=== PATIENT | female | born 1970 | race Caucasian/White ===

== ENCOUNTER 2024-10-04 07:55 | Inpatient (IN) | payer OTHER, SELFPAY ==
[2024-10-04] VITALS (13 sets, daily range): BP systolic 111–158; BP diastolic 71–92; BMI 22.7
[2024-10-04 00:33] LABS: Glucose - Point of Care 155 mg/dl (70-99)
[2024-10-04] MEDS: NSS 500 IV (00:44)
[2024-10-04] MEDS: DECADRON 10 MG IV (01:04)
[2024-10-04] MEDS: BENADRYL 25 MG IV (01:04)
[2024-10-04] MEDS: REGLAN 10 MG IV (01:05)
[2024-10-04 01:33] LABS: % Basophils 0.6 % (0-2); % Eosinophils 0.4 % (0-6); % Immature Granulocytes 0.4 % (0-0.5); % Lymphocytes 5.4 % (20.5-51.1); % Monocytes 10.8 % (1.7-9.3); % Neutrophils 82.4 % (42.2-75.2); Absolute Lymphocytes 0.3 10^3/uL (1.2-3.4); Absolute Monocytes 0.5 10^3/uL (0.1-0.6); Absolute Neutrophils 3.8 10^3/uL (1.4-6.5); Hematocrit 37.8 % (37.0-47.0); Hemoglobin 13.5 g/dL (12.0-16.0); Mean Corp Hgb Conc. 35.7 g/dL (33.0-37.0); Mean Corpuscular Hgb 31.4 pg (27.0-31.0); Mean Corpuscular Volume 87.9 fL (81.0-99.0); Mean Platelet Volume 8.5 fL (7.4-10.4); Nucleated Red Blood Cells % 0 %; Platelet Count 184 10^3/uL (130-400); Red Cell Dist. Width 11.9 % (11.5-14.5); White Blood Cell Count 4.7 10^3/uL (4.8-10.8)
--- NOTE | 2024-10-04 01:40 | ED.GENMED ---
History of Present Illness
General
Chief Complaint: Headache
Time Seen by Provider: 10/04/24 00:32
History of Present Illness
History of Present Illness:
54-year-old female brought in by her for headache. Patient was feeling faint upon arrival. She did have nausea and vomiting over the last few days. She has been trying to hydrate. She drink an extra liter of water over the past few days.
Does have headaches but states that this 1 is different. Denies chest pain or shortness of breath. Reports no abdominal pain.
Phy Exam
Physical Exam
Physical Exam:
Physical Exam
Vital signs and allergy list reviewed and agreed with.
GENERAL: Alert , in moderate apparent distress
EYE: pupils equal, EOMI, anicteric
NECK: Supple, no significant adenopathy. No masses. Trachea midline
ENT: Oropharynx is clear, mmm.
CARDIAC: Regular rate and rhythm . No M/R/G
LUNGS: Clear breath sounds bilaterally, no acute respiratory distress, no wheezes/rales/rhonchi
ABDOMEN: Soft, without focal tenderness, no r/g, no cvat. Normal BSx4q
NEUROLOGICAL: Alert and oriented, no focal neuro deficits
SKIN: Warm and dry, skin intact.
MUSCULOSKELETAL: No edema, well perfused. Moves all 4 extremities
PSYCH: Normal and appropriate interaction. Somnolent
Course
Orders/Labs/Results
Orders:
Orders
10/04/24 00:32
CT Head & Neck Angio W/wo IV Urgent
Comment: wrong order by attending changed to combined
Reason For Exam: sudden worsening severe headache
0.9% Sodium Chloride 500 ml [Nss] 500 ml IV BOLUS
Test Result ONCE
10/04/24 00:41
Ondansetron Injectable [Zofran] 4 mg IV NOW STA
10/04/24 00:55
Dexamethasone Sod Phosphate [Decadron] 10 mg IV NOW STA
Diphenhydramine [Benadryl] 25 mg IV NOW STA
Metoclopramide [Reglan] 10 mg IV NOW STA
10/04/24 01:21
Complete Blood Count/With Diff Urgent
Comprehensive Metabolic Panel Urgent
Erythrocyte Sed Rate Urgent
HCG, Serum Qualitative Screen Urgent
10/04/24 02:05
Add On- LAB Urgent
Tests Added?: hcg
10/04/24 02:43
3% Sodium Chloride 250 ml [Sodium Chloride 3%] 250 ml IV ONCE
10/04/24 03:43
Chest [CR Chest - 2 Views ] Stat
Comment:
Reason For Exam: cough, siadh rule out pulm nodule
10/04/24 03:51
Influenza A+B Rapid Molecular Stat
PARUL Source: Nasal Swab
Specimen Description:
10/04/24 03:52
Admit/Transfer Patient As Directed
Co-Sign Provider:
Level of Care: Observation services
Assign to:: Telemetry
Physician / Group: hospitalist
Diagnosis: hyponatremia
Reason for Telemetry: Other
Other Reason for Telemetry: hyponatremia
Date to Stop Telemetry: 10/06/24
Time to Stop Telemetry: 11:00
Reason for Hospitalization: hyponatremia
COVID-19 Antigen Stat
Source: Nasal Swab
Urinalysis Urgent
Date Specimen was Collected: 10/04/24
Time Specimen was Collected: 03:41
Urine Microscopic Urgent
Date Specimen was Collected: 10/04/24
Time Specimen was Collected: 03:41
Urine Osmolality Random [Osmolality, Random Urine] Urgent
Date Specimen was Collected: 10/04/24
Time Specimen was Collected: 03:41
Urine Sodium Urgent
Date Specimen was Collected: 10/04/24
Time Specimen was Collected: 03:41
PRN Pain Medication Management As Directed
May give lesser potent ordered pain med per pt: Yes
preference::
Protocol:: Medication orders for pain may be administered in a
manner that supports deferring to patient preference
when the pt is:
- Requesting an ordered lesser potent pain medication.
Least to most potent pain medications are defined
as: acetaminophen < NSAID < tramadol < opioids
(morphine, oxycodone, hydromorphone).
- Requesting a lesser dose of the same medication IF
ORDERED.
- Requesting a less intrusive route of administration
if both routes are prescribed by the provider (PO <
IV).
10/04/24 03:53
Code Status As Directed
Resuscitation Status: Full Code
10/04/24 04:00
3% Sodium Chloride 250 ml [Sodium Chloride 3%] 250 ml IV ONCE
Flush (0.9% Sodium Chloride) [Flush (Nss)] See Dose Instructions IV PER PROTOCOL
10/04/24 04:26
Add On- LAB Stat
Tests Added?: serum osmolality
10/04/24 04:48
Acetaminophen [Tylenol] 650 mg PO Q4HPRN PRN
Metoclopramide [Reglan] 10 mg IV Q6HPRN PRN
10/04/24 04:48
NEPHROLOGY CONSULT Routine
Consulting Provider: Rica Beyer
Was physician already notified: Yes
Reason for consult: hyponatremia, Na 119, new onset headache
MRI Brain [MR Brain Without Contrast] Routine
Comment:
Reason For Exam: new onset headache age > 50
Recent pill cam endoscopy?: No
Activity As Directed
Activity Level: With Assistance
Neurological Checks As Directed
Frequency: q4h
Orthostatic Vital Signs As Directed
Orthostatic VS Frequency: Daily
Pneumatic Compression Sleeves As Directed
Type: Knee high
Vital Signs As Directed
Frequency: Per unit guidelines
Pulse Ox/spot Check [RESP] Routine
Quantity: 1
DX Deep Vein Thrombosis Video Routine
10/04/24 05:35
Basic Metabolic Panel IN AM
10/04/24 Breakfast
Regular
At Your Request: Full Participation
Does patient need a safe tray?: No
Fluid Restriction: 1200 mL/day (40 oz)
10/04/24 10:00
BMP [Basic Metabolic Panel] Routine
10/06/24 11:00
DC Protocol for Telemetry ONCE
Abnormal Lab Results
10/04/24 10/04/24 10/04/24
00:31 01:21 03:52
WBC 4.7 L 10^3/uL
(4.8-10.8)
MCH 31.4 H pg
(27.0-31.0)
Absolute Lymphs (auto) 0.3 L 10^3/uL
(1.2-3.4)
Neutrophils % 82.4 H %
(42.2-75.2)
Lymphocytes % 5.4 L %
(20.5-51.1)
Monocytes % 10.8 H %
(1.7-9.3)
Sodium 119 L* mmol/L
(135-145)
Potassium 3.1 L mmol/L
(3.5-5.1)
Chloride 87 L mmol/L
(98-107)
Carbon Dioxide 19 L mmol/L
(22-30)
BUN 6 L mg/dl
(7-17)
Creatinine 0.4 L mg/dL
(0.6-1.0)
Glucose 161 H mg/dl
(70-99)
Total Bilirubin 1.6 H mg/dl
(0.2-1.3)
AST 49 H U/L
(14-36)
ALT 57 H U/L
(0-35)
Urine Ketones 2+ A
(Negative)
Urine Occult Blood 4+ A
(Negative)
Urine RBC 7-10 A /HPF
(0-2)
Urine Bacteria Few A
(Negative)
Urine Osmolality 94 L mOsm/kg
(300-900)
Urine Sodium 20 L mmol/L
(30-90)
POC Glucose 155 H mg/dl
(70-99)
10/04/24 01:21
10/04/24 01:21
Vital Signs
Initial and Last Documented VS:
Initial Vital Signs
Temp Pulse Resp BP Pulse Ox
97.7 F 91 15 158/92 98
10/04/24 00:29 10/04/24 00:29 10/04/24 00:29 10/04/24 00:29 10/04/24 00:29
Last Documented Vital Signs
Temp Pulse Resp BP Pulse Ox
97.7 F 88 17 127/80 95
10/04/24 00:29 10/04/24 06:30 10/04/24 06:30 10/04/24 06:00 10/04/24 06:30
*Critical Care Note
Total Time (30-74mins, 75-104mins- exclusive of procedures): 46 (Critical care statement: A total of 46 minutes of critical care time was provided for this patient. This time is separate from time utilized to perform the aforementioned documented
procedures. Aggregate critical care time includes only time during which I was engaged in work directl)
Update Note
Update Note:
CT head without contrast
CTA head and neck with IV contrast
IMPRESSION:
CT head:
No acute intracranial process.
No intracranial bleed.
No calvarial fracture.
CTA neck:
No dissection or significant stenosis of the cervical carotid or vertebral arteries.
CTA head:
Patent cerebral vasculature. No evidence of aneurysm or vessel occlusion.
Patient is able to converse. She states that she still has a headache. Will order Toradol.
Patient is acutely hyponatremic. I have every reason to believe that this started in the last 48 hours. Given her sodium is 119 this is severe hyponatremia. Patient has no known intracranial pathology. CT and CT angiograms are negative.
There is no evidence to indicate that this is due to self-induced water intoxication. Patient did admit to drinking 1 L of water today after vomiting trying to 'replace 'volume
There is no edema.
Patient will get 3% saline.
Serum sodium will be monitored hourly.
Patient to be admitted to the hospitalist service
ED Attending Note
-
Portions of this chart may have been created with voice recognition software.� Occasional wrong word or��sound alike� substitutions may have occurred due to the inherent limitations of voice recognition software.
Discharge Plan
Departure
Patient Disposition: Admit
Date of Disposition: 10/04/24
Time of Disposition: 02:45
Admit to: ICU
Presentation/result/management discussed w/ accepting MD/DO: Hospitalist
Condition: Fair
Discharge Problem:
Acute hyponatremia, Headache, Influenza A
Interventions
Interventions:
*Risk Screen - Suicide Last Done: 10/04/24 01:13
*General Assessment Last Done: 10/04/24 01:13
*Neglect/Abuse Screening Last Done: 10/04/24 01:13
*ED- Fall Risk Assessment Last Done: 10/04/24 01:13
*ED COVID-19 Vaccine History Last Done: 10/04/24 01:13
ED- Neurological Assessment Last Done: 10/04/24 01:13
[2024-10-04 01:44] LABS: HCG, Serum Qualitative Screen Negative
[2024-10-04 01:49] LABS: Erythrocyte Sed Rate 1 mm/hour (0-20)
[2024-10-04 02:29] LABS: ALT (SGPT) 57 U/L (0-35); AST (SGOT) 49 U/L (14-36); Albumin 4.4 g/dl (3.5-5.0); Alkaline Phosphatase 76 U/L (38-126); Blood Urea Nitrogen 6 mg/dl (7-17); Calcium 8.8 mg/dl (8.4-10.2); Carbon Dioxide 19 mmol/L (22-30); Chloride 87 mmol/L (98-107); Estimated Creatinine Clearance 107 ml/min; Glucose 161 mg/dl (70-99); Potassium 3.1 mmol/L (3.5-5.1); Sodium 119 mmol/L (135-145); Total Bilirubin 1.6 mg/dl (0.2-1.3); Total Protein 6.8 g/dl (6.3-8.2); eGFR > 60.00
[2024-10-04] MEDS: SODIUM CHLORIDE 3% 250 IV (03:27)
[2024-10-04] MEDS: FLUSH (NSS) 1 FLUSH IV (03:35)
--- NOTE | 2024-10-04 03:44 | HPS.HSE ---
Family Physician
-
Family Physician: NOT KNOW UNKNOWN - PT DOES
Chief Complaint
-
Headache
History of Present Illness
This is a 54-year-old female with no significant past medical history and generally healthy will presents to the emergency department after 3 days of headache with development of nausea and vomiting today.
Spouse reported that patient initially had cough which is nonproductive and not associated with runny nose or sore throat. The cough only lasted for about a day and then resolved. She has some chills but denies any fevers. She denies feeling
short of breath. She denies any known sick contacts. For the last 3 days she has developed a headache which she describes as a pressure in the front of her head. Is not associated with phonophobia or photophobia but she reports muffled auditory
sensation with speaking and hearing she denies any neck pain or stiffness. She denies any rash. She denies any urinary symptoms. She denies history of migraine headaches. She has had occasional headaches in the past.
Patient denies any new medications or ingestions. She has been using Tylenol and Advil as needed for headaches over the last 2 days. She did use Excedrin today which resulted in improvement and almost resolution of her headache. However she had
nausea and nonbilious and nonbloody emesis. Patient has also been trying to hydrate herself and drank 4 L of water today. She reports that she has been urinating each time she does drink. She denies any alcohol use.
In the emergency department she was afebrile, blood pressure was 127/84 with a pulse of 82 and she was satting 98% on room air. CBC was completely unremarkable. Electrolytes notable for sodium of 119, potassium of 3.1 and bicarb of 19. She has
normal BUN and creatinine with a glucose of 160. CTs of head imaging shows as below:
CT head without contrast: No acute intracranial process
CTA neck: No dissection no significant stenosis of the cervical carotid or vertebral arteries
CTA head: Patent cerebral vasculature no evidence of aneurysm or vessel occlusion.
Medical History
Past Medical History
Past Medical History: Reports None
Past Surgical History: Reports None
Social History
Tobacco: Non-smoker
Alcohol: None
Drug: None
Personal:
Living: With Family
Family History
Family History: Not pertinent
Allergies / Home Medications
Allergies reflects when Allergies were last updated in [facility].
Home Medications with original date entered in [facility]
Allergy/Medication List:
Allergies
Allergy/AdvReac Type Severity Reaction Status Date / Time
Penicillins Allergy Unknown Verified 10/04/24 00:28
No home medications
Review of Systems
-
History Source: Patient
Constitutional: Reports No Symptoms
EENT: Reports No Symptoms
Respiratory: Reports No Symptoms
Cardiac: Reports No Symptoms
Abdomen/GI: Reports Nausea and Vomiting
: Reports No Symptoms
Musculoskeletal: Reports No Symptoms
Skin: Reports No Symptoms
Neurological: Reports Headache
Endocrine: Reports No Symptoms
Hematologic/Lymphatic: Reports No Symptoms
Psych: Reports No Symptoms
Physical Exam
Vital Signs
Vital Signs
Temp Pulse Resp BP Pulse Ox
97.7 F 90 16 145/92 95
10/04/24 00:29 10/04/24 03:37 10/04/24 03:37 10/04/24 03:37 10/04/24 03:37
Physical Exam
General: Well Developed and Well Nourished
HEENT: NormoCephalic, Anicteric, Moist mucous membranes, Atraumatic and PERRLA
Respiratory: Clear
Cardiac: S1/S2 and Regular Rhythm
Breast: Deferred by me
GI: Soft, Non Tender, Non Distended and Normal Bowel Sounds
Rectal: Deferred by Provider
Genito-urinary: Clear Urine
Musculoskeletal: No Clubbing and No Cyanosis
Skin: Warm
Neuro: AO x 3 and Nonfocal/grossly intact
Hematologic/Lymphatic: No Lymphadenopathy
Psych: Calm
Laboratory Results
-
10/04/24 01:21
10/04/24 01:21
Laboratory Results
Total Bilirubin 1.6 mg/dl (0.2-1.3) H 10/04/24 01:21
AST 49 U/L (14-36) H 10/04/24 01:21
ALT 57 U/L (0-35) H 10/04/24 01:21
Alkaline Phosphatase 76 U/L (38-126) 10/04/24 01:21
Data Reviewed
-
CT Scan: Report Reviewed by me
Lab Data: Labs Reviewed by me
Old Records: Reviewed
Impression/Plan
-
IMPRESSION:
Patient is a 54-year-old with no significant past medical history presenting with headache and suspected acute hyponatremia secondary to marked polydipsia or due to underlying SIADH. It appears the headache may have precipitated preceded the
hyponatremia which is contributing to her nausea and normal for sensation. Currently she denies headache and has no focal neurological deficits. CT of the head shows no acute intracranial process, no bleeding, no mass, no stroke and no mass effect
and no vascular abnormalities. She has no neck stiffness and no rash to suggest an acute infectious process.
PLAN:
1. Hyponatremia - SIADH vs acute water potomania
- admit to telemetry
- started on 3% saline. Continue 1 bag and repeat sodium in 4 hours to increase serum Na by about 4meq quickly
- fluid restriction to 1.2 L /day
- checking serum osmolality, urine sodium and osmolality
- patient not on any meds
- given age, new severe headache, if siadh suggested by urine will get mri brain and chest xray
- nephrology consulted
2. Headache
- improved, continue with tylenol and prn reglan for now
- correct serum sodium
- avoid nsaids
DVT PPX - SCDs
Code status - Full code
[2024-10-04 04:05] LABS: Urine Albumin Negative (Neg - Trace); Urine Bilirubin Negative (Negative); Urine Character Clear (Clear); Urine Color Yellow; Urine Glucose Negative (Negative); Urine Ketone 2+ (Negative); Urine Leukocyte Negative (Negative); Urine Nitrite Negative (Negative); Urine Occult Blood 4+ (Negative); Urine Specific Gravity 1.005 (<1.030); Urine Urobilinogen Negative (Neg - 1+)
[2024-10-04 04:22] LABS: COVID-19 Antigen Negative (Negative)
[2024-10-04 04:24] LABS: Osmolality Urine 94 mOsm/kg (300-900)
[2024-10-04 04:25] LABS: Urine Squamous Cell 0-2 /LPF (Few)
[2024-10-04 04:26] LABS: Urine Bacteria Few (Negative); Urine White Cell 0-2 /HPF (0-5)
[2024-10-04 04:31] LABS: Urine Sodium 20 mmol/L (30-90)
[2024-10-04] MEDS: KCL 40 MEQ PO (05:32)
[2024-10-04 06:08] LABS: Osmolality Serum 269 mOsm/kg (275-300)
[2024-10-04 06:26] LABS: Blood Urea Nitrogen 5 mg/dl (7-17); Calcium 9.7 mg/dl (8.4-10.2); Carbon Dioxide 24 mmol/L (22-30); Chloride 94 mmol/L (98-107); Estimated Creatinine Clearance 107 ml/min; Glucose 137 mg/dl (70-99); Potassium 3.5 mmol/L (3.5-5.1); Sodium 131 mmol/L (135-145); eGFR > 60.00
[2024-10-04 08:44] LABS: Blood Urea Nitrogen 6 mg/dl (7-17); Calcium 9.7 mg/dl (8.4-10.2); Carbon Dioxide 25 mmol/L (22-30); Chloride 98 mmol/L (98-107); Estimated Creatinine Clearance 107 ml/min; Glucose 171 mg/dl (70-99); Potassium 4.5 mmol/L (3.5-5.1); Sodium 134 mmol/L (135-145); eGFR > 60.00
--- NOTE | 2024-10-04 08:53 | W.CON.NEPH ---
Consultation
-
Date/Time Consultation Requested: 10/04/2024 7 AM
Date/Time Consultation Performed: 10/04/2024 9 AM
Requesting Provider: Dr. Hope
Performing Provider: Dr. Casillas
Reason for Consultation: Hyponatremia
Medical History
-
Chief Complaint: Hyponatremia
History of Present Illness:
This is a 54-year-old female who has very limited past medical history. She has not seen a healthcare provider in likely 4 years time. She does however have routine mammograms for screening. 3 days ago she developed a significant headache which
she referred to as a migraine though she has not had migraines previously. Because of the headache she taken Tylenol, Advil, Excedrin. She also then developed some nausea with some vomiting. She tried to maintain excellent hydration drinking
easily over a gallon of fluid per day. She has no issues with urination. Because of the nausea and vomiting she had come to the emergency room for evaluation. Laboratory values disclosed a sodium level of 119. She was given hypertonic saline and
repeat sodium level was 131.
Past Medical History
None
Social History
Tobacco: Non-Smoker
Alcohol: None
Drug: None
Family History
Family History: Not Pertinent
Allergies / Home Medications
Allergy/AdvReac Type Severity Reaction Status Date / Time
Penicillins Allergy Unknown Verified 10/04/24 00:28
Review of Systems
-
Nausea and vomiting improved, headache improved
All other systems: Negative unless noted
Physical Exam
Vital Signs
Vital Signs
Temp Pulse Resp BP Pulse Ox
97.7 F 88 17 127/80 95
10/04/24 00:29 10/04/24 06:30 10/04/24 06:30 10/04/24 06:00 10/04/24 06:30
Lab Results
WBC 4.7 10^3/uL (4.8-10.8) L 03/14/25 01:21
RBC 4.30 10^6/uL (4.20-5.40) 10/04/24 01:21
Hgb 13.5 g/dL (12.0-16.0) 10/04/24 01:21
Hct 37.8 % (37.0-47.0) 10/04/24 01:21
Plt Count 184 10^3/uL (130-400) 10/04/24:
eGFR Cancelled 10/04/24 10:00
Albumin 4.4 g/dl (3.5-5.0) 10/04/24:21
Physical Exam
Patient is awake alert oriented and in no distress. Mood and affect were pleasant, insight and judgment were good. Pupils are equal round and reactive to light, extraocular movements are intact, sclera were anicteric. Hearing was normal, ears and
nose are intact. Oropharynx was clear. Neck was supple with trachea midline and no thyromegaly. Heart was regular rate and rhythm without rubs. Lower extremities without edema. Lungs were clear to auscultation bilaterally and with normal
excursion. Abdomen was soft, nontender, with normal active bowel sounds, and no hepatosplenomegaly. Skin was without rash and with normal turgor.
Data Reviewed
-
Radiology: Image Personally Visualized and interpreted (Chest x-ray 10/04/2024 by my reading no acute disease)
CT Scan: Other (CT head and neck ordered)
Assessment/Plan
-
Assessment
migraine
Hyponatremia
Nausea vomiting
Plan
Urine osmolality was 94, urine sodium was low. Her history would indicate polydipsia related hyponatremia. Concern for osmotic demyelination is low. She would likely have corrected easily with fluid restriction +/- saline as well
Okay for D5W at this time
Serial BMP
--- NOTE | 2024-10-04 11:37 | W.PN.UPDATE ---
Update Note
Progress Note Update
Non-billable addendum
Admitted 345 AM for symptomatic hyponatremia
received 3% saline - Na rapidly corrected to 131 from 119. d/w Nephrology and D5w started
Assessment:
Acute symptomatic hyponatremia
- likely etiology is polydipsia
- s/p 3% saline with rapid overcorrection; started on D5W to low Na. osmotic demyelination risk is low.
- trend BMP
- oral fluid restriction
- nephrology following
Migraine headache
- MRI pending
Nausea/vomiting from influenza a
- mostly resolved
- regular diet
DVT ppx: SCDs
Code: Full
[2024-10-04] MEDS: D5W 1000 IV (12:15)
--- NOTE | 2024-10-04 14:46 | CM ---
CM reviewed medical records. Plan for discharge to home.
PLAN:home no needs.
[2024-10-04 14:52] LABS: Blood Urea Nitrogen 10 mg/dl (7-17); Calcium 9.9 mg/dl (8.4-10.2); Carbon Dioxide 24 mmol/L (22-30); Chloride 98 mmol/L (98-107); Estimated Creatinine Clearance 107 ml/min; Glucose 137 mg/dl (70-99); Potassium 4.1 mmol/L (3.5-5.1); Sodium 132 mmol/L (135-145); eGFR > 60.00
--- NOTE | 2024-10-04 14:58 | W.DS.TRANS ---
DC Summary - [employer]
-
Discharge Instructions:
Discharge Diagnosis/Procedures acute hyponatremia from polydipsia
Diet Regular
Bathing Restrictions None
Instructions:
Stand-Alone Forms:
Changes to Home Medications: No
Discharge Medications:
DC Medications w/original date entered in [employer] [facility]
[id number] 250 mg-250 mg-65 mg tablet (Excedrin Migraine) 1 tab PO DAILYPRN PRN headache 10/04/24
Home Medication Changes
Pending Results: No
Total time spent discharging patient (in min): 41
== END 2024-10-04 15:55 | disposition home or self-care (01) | DRG 103 ==
LOC: ED 07:55
PROVIDERS: ADMITTING PHYSICIAN Internal Medicine; ATTENDING PHYSICIAN Internal Medicine; EMERGENCY PHYSICIAN Student in an Organized Health Care Education/Training Program; OTHER PHYSICIAN Specialist
DX: G43.909 Migraine, unspecified, not intractable, without status migrainosus (principal); E87.1 Hypo-osmolality and hyponatremia; J10.1 Influenza due to other identified influenza virus with other respiratory manifestations; R63.1 Polydipsia; Z88.0 Allergy status to penicillin; Z20.822 Contact with and (suspected) exposure to COVID-19
CPT/HCPCS: 70496; 70498; 70551; 71046; 80048; 80053; 81003; 81015; 82962; 83930; 83935; 84300; 84703; 85025; 85652; 87502; 87811; 96361; 96374; 96375; 99291; Q9967

== ENCOUNTER → 2025-02-25 07:58 | Outpatient (REF) | payer OTHER, SELFPAY ==
[2025-02-25 09:01] LABS: Hematocrit 42.6 % (37.0-47.0); Hemoglobin 14.4 g/dL (12.0-16.0); Mean Corp Hgb Conc. 33.8 g/dL (33.0-37.0); Mean Corpuscular Volume 93.4 fL (81.0-99.0); Nucleated Red Blood Cells % 0 %; Platelet Count 246 10^3/uL (130-400); Red Cell Dist. Width 12.3 % (11.5-14.5)
[2025-02-25 09:44] LABS: ALT (SGPT) 17 U/L (0-35); AST (SGOT) 23 U/L (14-36); Albumin 4.9 g/dl (3.5-5.0); Alkaline Phosphatase 50 U/L (38-126); Blood Urea Nitrogen 14 mg/dl (7-17); Calcium 10.0 mg/dl (8.4-10.2); Carbon Dioxide 26 mmol/L (22-30); Chloride 106 mmol/L (98-107); Glucose 103 mg/dl (70-99); HDL Cholesterol 68 mg/dl; LDL Cholesterol, Calculated 146 mg/dl; Potassium 4.3 mmol/L (3.5-5.1); Sodium 140 mmol/L (135-145); Total Protein 7.5 g/dl (6.3-8.2); Very Low Density Lipoprotein 16 mg/dl (0-30); eGFR > 60.00
[2025-02-27 16:32] LABS: FIT-Fecal Occult Blood Interp Negative
== END ==
LOC: REG 07:58
PROVIDERS: ATTENDING PHYSICIAN Nurse Practitioner Family
DX: Z00.01 Encounter for general adult medical examination with abnormal findings (principal)
CPT/HCPCS: 36415; 80053; 80061; 83520; 84443; 85025

== ENCOUNTER → 2025-04-07 13:01 | Outpatient (REF) | payer OTHER, SELFPAY | LOC: HWWDC 13:01 | PROVIDERS: ATTENDING PHYSICIAN Nurse Practitioner Family | DX: Z12.31 Encounter for screening mammogram for malignant neoplasm of breast (principal) | CPT/HCPCS: 77063; 77067 ==